=== PATIENT | male | born 1985 | race Caucasian/White ===

== ENCOUNTER 2018-08-01 09:05 | Emergency (ER) | payer SELFPAY ==
[~2018-08-01 09:05] MED LIST: Adacel (T-DAP) 0.5 ML VIAL ONE; Sodium Chloride Irrig Solution 250 ML BOT ONE
--- NOTE | 2018-08-01 14:27 | RAD ---
2 VIEWS LEFT FOREARM: Date: 08/01/18 HISTORY: Left forearm injury. FINDINGS: There is soft tissue irregularity and subcutaneous soft tissue swelling seen at the dorsal aspect of the proximal forearm at the level of the proximal diaphysis of the ulna. There are postsurgical dumont es involving the proximal ulna with a dorsal plate and screws transfixing the proximal ulna. There is no acute fracture or dislocation seen. No radiopaque foreign body is identified. IMPRESSION: 1. Soft tissue irregularity likely related to laceration with associated subcutaneous soft tissue sw elling involving the dorsal aspect of the proximal forearm. 2. No acute osseous abnormality. 3. Postsurgical changes involving the proximal ulna. POS: [facility]
== END 2018-08-01 11:15 | disposition home or self-care (01) ==
LOC: MADERS 09:15
DX: Z53.21 Procedure and treatment not carried out due to patient leaving prior to being seen by health care provider (principal)
CPT/HCPCS: 90471; 90715

== ENCOUNTER 2018-08-13 16:06 | Emergency (ER) | payer SELFPAY ==
[2018-08-13] MEDS ORDERED: HYDROcodone/Acetaminophen 10/325 mg Tablet ONE (16:51)
== END 2018-08-13 18:00 | disposition home or self-care (01) ==
LOC: MADERS 16:06
DX: T24.201A Burn of second degree of unspecified site of right lower limb, except ankle and foot, initial encounter (principal); T22.151A Burn of first degree of right shoulder, initial encounter; T20.10XA Burn of first degree of head, face, and neck, unspecified site, initial encounter; W40.1XXA Explosion of explosive gases, initial encounter
CPT/HCPCS: 99283